=== PATIENT | male | born 1990 | race Caucasian/White ===

== ENCOUNTER 2021-01-31 22:07 | Emergency (ER) | payer OTHER ==
[~2021-01-31] VITALS: Ht 190.5 cm; Wt 104.3 kg
[2021-01-31] MEDS ORDERED: REMERON30 MG PO (22:24)
[2021-01-31] MEDS ORDERED: MELOXICAM5 MG PO (22:25)
== END 2021-01-31 22:42 | disposition home or self-care (01) ==
LOC: ED 22:07
DX: M25.562 Pain in left knee (principal); Z87.891 Personal history of nicotine dependence
CPT/HCPCS: 99283